=== PATIENT | female | born 1995 | race Caucasian/White ===

== ENCOUNTER 2016-05-01 18:33 | Emergency (ER) | payer OTHER ==
[~2016-05-01] VITALS: Ht 157.5 cm; Wt 63.6 kg
[2016-05-01 18:42] VITALS: BP 138/84; TEMP 98.2
[2016-05-01] MEDS ORDERED: PROZAC40 MG PO (18:45)
[2016-05-01] MEDS ORDERED: TRINESSA 281 TAB (18:45)
[2016-05-01] MEDS ORDERED: STRATTERA80 MG PO (18:45)
[2016-05-01 19:43] VITALS: PULSE 75
== END 2016-05-01 19:43 | disposition home or self-care (01) ==
LOC: COL.ER 18:33
DX: S06.0X0A Concussion without loss of consciousness, initial encounter (principal); S16.1XXA Strain of muscle, fascia and tendon at neck level, initial encounter; V43.52XA Car driver injured in collision with other type car in traffic accident, initial encounter; Y92.410 Unspecified street and highway as the place of occurrence of the external cause; S00.33XA Contusion of nose, initial encounter